=== PATIENT | female | born 1960 | race Caucasian/White ===

== ENCOUNTER 2024-10-14 15:22 | Inpatient (IN) | payer OTHER ==
[~2024-10-14 15:22] MED LIST: Iopamidol 370 76% 100 ML VIAL ONE
[2024-10-14 16:42] LABS: Actual Bicarbonate (HCO3v) 23.1 mEq/L (22-28); Analyzer IN Cardio CS ER; Base Excess -0.8 mEq/L (-2 - +2); Calcium, Ionized (venous) 1.15 mmol/L (1.16-1.32); Chloride (VBG) 102 mmol/L (98-106); Hematocrit-VBG 49 % (36.0-47.0); Hemoglobin (Hb) 16.7 g/dL (11.7-16.0); Potassium (VBG) 3.62 mmol/L (3.70-5.30); Puncture Site Other Site; RapidComm Collect By RN; Sodium 141 mmol/L (133-146)
[2024-10-14] MEDS ORDERED: Ipratropium/Albuterol 3 ML NEB ONE (16:52)
[2024-10-14 16:57] LABS: #Basophils 0.09 10x3/uL (0.0-0.2); #Eosinophils 0.06 10x3/uL (0.0-0.5); #Monocytes 0.72 10x3/uL (0.0-1.1); #Neutrophils 5.81 10x3/uL (1.5-8.4); %Basophils 1.2 % (0.0-2.0); %Eosinophils 0.8 % (0.0-6.0); %Lymphocytes 6.7 % (18.0-47.0); %Monocytes 9.9 % (0.0-10.0); %Neutrophils 80.2 % (40.0-75.0); Hematocrit 45.7 % (34.9-44.5); Hemoglobin 15.1 g/dL (12.0-15.5); Mean Corpuscular Hemoglobin 32.3 pg (27.0-33.0); Mean Corpuscular Volume 97.9 fL (81.6-98.3); Mean Platelet Volume 9.8 fL (7.4-10.4); Platelet Count 322 10x3/uL (150-450); RBC Distribution Width 16.6 % (11.5-14.5); Red Blood Cell (RBC) Count 4.67 10x6/uL (3.90-5.03); White Blood Cell (WBC) Count 7.3 10x3/uL (3.5-10.5)
[2024-10-14 17:07] LABS: ALT (SGPT) 17 U/L (8-55); AST (SGOT) 16 U/L (5-34); Albumin 3.4 g/dL (3.4-4.8); Alkaline Phosphatase 73 U/L (40-110); Anion Gap 17 mmol/L (10-20); BUN (Urea Nitrogen) 11 mg/dL (9.8-20.1); Bilirubin, Total 0.9 mg/dL (0.2-1.2); Calc. Creatinine Clearance 0 mL/min (70-130); Calcium 9.6 mg/dL (7.8-10.44); Carbon Dioxide 22 mmol/L (23-31); Chloride 107 mmol/L (98-107); Estimated GFR 99; Globulin 2.5 g/dL (2.4-3.5); Glucose 154 mg/dL (80-115); Protein, Total 5.9 g/dL (5.8-8.1); Sodium 142 mmol/L (136-145)
[2024-10-14 17:14] LABS: Troponin I Less than 0.010 ng/mL (< 0.028)
[2024-10-14] MEDS ORDERED: methylPREDNISolone Sod Succ/PF 125 MG/2 ML VIAL ONE (17:15)
[2024-10-14] MEDS ORDERED: Azithromycin 500 MG VIAL ONE (17:16)
[2024-10-14] MEDS ORDERED: cefTRIAXone (ROCEPHIN) 2 GM VIAL ONE ×2 (17:17→17:36)
[2024-10-14] MEDS ORDERED: Calcium Carbonate 500 MG ChewTAB PO PRN (20:20)
[2024-10-14] MEDS ORDERED: Dextrose 5% in Water 1,000 ML IV PRN (20:20)
[2024-10-14] MEDS ORDERED: Ondansetron PF 4 MG/2 ML Vial IVP PRN (20:20)
[2024-10-14] MEDS ORDERED: Dextrose 50% Abboject 50 ML SYRINGE SLOW IVP PRN (20:20)
[2024-10-14] MEDS ORDERED: Senokot S 8.6-50 MG TAB PO PRN (20:20)
[2024-10-14] MEDS ORDERED: Zolpidem Tartrate 5 MG TAB PO PRN (20:20)
[2024-10-14] MEDS ORDERED: Glucagon 1 MG/ML KIT IM PRN (20:20)
[2024-10-14] MEDS ORDERED: Ipratropium/Albuterol 3 ML NEB NEB PRN (20:26)
[2024-10-14 21:15] LABS: Troponin I Less than 0.010 ng/mL (< 0.028)
[2024-10-14 21:42] VITALS: BMI 29.5
[2024-10-14] MEDS: Rosuvastatin 10 MG TAB PO SCH (22:26)
[2024-10-14] MEDS: Flecainide 50 MG TAB PO SCH (22:26)
[2024-10-14] MEDS: Furosemide 40 MG (4 mL) VIAL SLOW IVP SCH (22:27)
[2024-10-14] MEDS: Enoxaparin 100 MG (1 mL) SYRINGE SC SCH (22:38)
[2024-10-14] MEDS: Guaifenesin DM 100-10/5 ML UDCUP PO PRN (23:09)
[2024-10-14] MEDS: Insulin Lispro 100 UNIT/ML 10 ML VIAL SC PRN (23:10)
[2024-10-14] MEDS: methylPREDNISolone Sod Succ 40 MG VIAL IVP SCH (23:11)
[2024-10-14 23:58] LABS: Legionella Urinary Ag Negative (Negative); Strep pneumo Urine Ag NEGATIVE (NEGATIVE)
[2024-10-15 00:06] LABS: Troponin I Less than 0.010 ng/mL (< 0.028)
[2024-10-15 04:41] LABS: MDiff Complete? YES; Mean Corpuscular HGB CONC 33.3 g/dL (32.0-36.0); Mean Corpuscular Hemoglobin 32.3 pg (27.0-33.0); Mean Platelet Volume 9.7 fL (7.4-10.4); Platelet Count 333 10x3/uL (150-450); RBC Distribution Width 16.5 % (11.5-14.5); Red Blood Cell (RBC) Count 4.64 10x6/uL (3.90-5.03); White Blood Cell (WBC) Count 7.9 10x3/uL (3.5-10.5)
[2024-10-15 04:45] LABS: Anion Gap 17 mmol/L (10-20); BUN (Urea Nitrogen) 14 mg/dL (9.8-20.1); Calc. Creatinine Clearance 126 mL/min (70-130); Calcium 9.6 mg/dL (7.8-10.44); Carbon Dioxide 23 mmol/L (23-31); Chloride 105 mmol/L (98-107); Estimated GFR 94; Glucose 329 mg/dL (80-115); Magnesium 1.9 mg/dL (1.6-2.6); Potassium 3.9 mmol/L (3.5-5.1); Sodium 141 mmol/L (136-145)
[2024-10-15 05:11] LABS: Band 14 % (5-11); Lymphocytes 5 % (21-51); Monocytes 2 % (0-10); Neutrophil 79 % (42-75)
[2024-10-15 05:16] LABS: Anisocytosis SLIGHT = 6-15 cells (100X) (0-5/hpf); Platelet Adequacy Comment Appears Adequate; Polychromasia SLIGHT = 2-3 cells (100X) (0-2/hpf); Toxic Granulation SLIGHT
[2024-10-15] MEDS: Levothyroxine 150 MCG TAB PO SCH (05:45)
[2024-10-15] MEDS: Levothyroxine Sodium 25 MCG TAB PO SCH (05:45)
[2024-10-15] MEDS: Furosemide 20 MG (2 mL) VIAL SLOW IVP SCH (06:26)
[2024-10-15] MEDS ORDERED: Glimepiride 2 MG TAB PO SCH (08:00)
[2024-10-15] MEDS ORDERED: Furosemide 20 MG (2 mL) VIAL SLOW IVP SCH (09:00)
[2024-10-15] MEDS ORDERED: Enoxaparin 100 MG (1 mL) SYRINGE SC SCH (09:00)
[2024-10-15] MEDS ORDERED: Apixaban 5 MG TAB PO SCH (09:00)
[2024-10-15] MEDS ORDERED: Flecainide 50 MG TAB PO SCH (09:00)
[2024-10-15] MEDS: Amlodipine 5 MG TAB PO SCH (10:59)
[2024-10-15] MEDS: Pantoprazole DR 40 MG TAB PO SCH (10:59)
[2024-10-15] MEDS: Magnesium Oxide 400 MG TAB PO SCH (10:59)
[2024-10-15] MEDS: Glimepiride 2 MG TAB PO SCH (11:00)
[2024-10-15] MEDS: Potassium Chloride 20 MEQ TAB PO SCH (11:00)
[2024-10-15] MEDS: Apixaban 5 MG TAB PO SCH (11:00)
[2024-10-15] MEDS: Flecainide 50 MG TAB PO SCH (11:00)
[2024-10-15] MEDS: methylPREDNISolone Sod Succ 40 MG VIAL IVP SCH (11:04)
[2024-10-15] MEDS: Insulin Regular, Human 100 UNIT/ML 10 ML VIAL SC PRN (12:40)
[2024-10-15] MEDS: Ipratropium Bromide 2.5 ml Neb NEB SCH (13:45)
[2024-10-15] MEDS ORDERED: Furosemide 40 MG (4 mL) VIAL SLOW IVP SCH (14:00)
[2024-10-15] MEDS: cefTRIAXone\\ROCEPHIN 2 GM in Sodium Chloride 0.9% 100 ML IVPB SCH (18:06)
[2024-10-15] MEDS: Azithromycin 500 MG in Sodium Chloride 0.9% 250 ML 250 ML IVPB SCH (19:27)
[2024-10-15] MEDS: Rosuvastatin 10 MG TAB PO SCH (20:51)
[2024-10-16 04:47] LABS: #Basophils 0.01 10x3/uL (0.0-0.2); #Eosinophils 0.01 10x3/uL (0.0-0.5); #Monocytes 0.86 10x3/uL (0.0-1.1); #Neutrophils 8.58 10x3/uL (1.5-8.4); %Basophils 0.1 % (0.0-2.0); %Eosinophils 0.1 % (0.0-6.0); %Lymphocytes 2.5 % (18.0-47.0); %Monocytes 8.8 % (0.0-10.0); %Neutrophils 87.8 % (40.0-75.0); Hematocrit 43.9 % (34.9-44.5); Hemoglobin 14.4 g/dL (12.0-15.5); Mean Corpuscular HGB CONC 32.8 g/dL (32.0-36.0); Mean Corpuscular Hemoglobin 31.8 pg (27.0-33.0); Mean Corpuscular Volume 96.9 fL (81.6-98.3); Mean Platelet Volume 9.8 fL (7.4-10.4); Platelet Count 323 10x3/uL (150-450); RBC Distribution Width 16.5 % (11.5-14.5); Red Blood Cell (RBC) Count 4.53 10x6/uL (3.90-5.03); White Blood Cell (WBC) Count 9.8 10x3/uL (3.5-10.5)
[2024-10-16 04:58] LABS: Anion Gap 17 mmol/L (10-20); BUN (Urea Nitrogen) 23 mg/dL (9.8-20.1); Calc. Creatinine Clearance 130 mL/min (70-130); Calcium 8.9 mg/dL (7.8-10.44); Carbon Dioxide 24 mmol/L (23-31); Chloride 108 mmol/L (98-107); Estimated GFR 98; Glucose 125 mg/dL (80-115); Potassium 3.9 mmol/L (3.5-5.1); Sodium 145 mmol/L (136-145)
[2024-10-16] MEDS: Lantus 1000 UNITS/10 ML VIAL SC SCH (08:46)
[2024-10-16] MEDS: Furosemide 40 MG TAB PO SCH ×2 (08:58→08:59)
[2024-10-16] MEDS: methylPREDNISolone Sod Succ 40 MG VIAL IVP SCH (08:59)
[2024-10-16] MEDS: Flecainide 50 MG TAB PO SCH ×3 (09:00→21:45)
[2024-10-16] MEDS ORDERED: methylPREDNISolone Sod Succ 40 MG VIAL IVP SCH (09:00)
[2024-10-16] MEDS ORDERED: Ipratropium Bromide 2.5 ml Neb ONE (09:38)
[2024-10-16] MEDS: Ipratropium Bromide 2.5 ml Neb NEB SCH (11:45)
[2024-10-16 13:19] LABS: ANA Symphony (Qualitative) Negative (Negative); ANA Symphony (Quantitative) Less than 0.1 Ratio (< 0.7 Negative); dsDNA IgG Antibody Less than 0.6 IU/mL (<10 Negative)
[2024-10-16] MEDS: cefTRIAXone\\ROCEPHIN 1 GM in Sodium Chloride 0.9% 100 ML IVPB SCH (19:04)
[2024-10-17 04:13] LABS: Anion Gap 15 mmol/L (10-20); BUN (Urea Nitrogen) 23 mg/dL (9.8-20.1); Calc. Creatinine Clearance 130 mL/min (70-130); Calcium 8.9 mg/dL (7.8-10.44); Carbon Dioxide 26 mmol/L (23-31); Chloride 104 mmol/L (98-107); Estimated GFR 98; Glucose 183 mg/dL (80-115); Potassium 4.3 mmol/L (3.5-5.1); Sodium 141 mmol/L (136-145)
[2024-10-17 04:19] LABS: #Basophils 0.01 10x3/uL (0.0-0.2); #Monocytes 0.49 10x3/uL (0.0-1.1); #Neutrophils 6.57 10x3/uL (1.5-8.4); %Basophils 0.1 % (0.0-2.0); %Lymphocytes 2.9 % (18.0-47.0); %Monocytes 6.7 % (0.0-10.0); %Neutrophils 89.9 % (40.0-75.0); Hematocrit 44.9 % (34.9-44.5); Hemoglobin 14.5 g/dL (12.0-15.5); Mean Corpuscular HGB CONC 32.3 g/dL (32.0-36.0); Mean Corpuscular Hemoglobin 31.4 pg (27.0-33.0); Mean Corpuscular Volume 97.2 fL (81.6-98.3); Platelet Count 303 10x3/uL (150-450); RBC Distribution Width 16.8 % (11.5-14.5); Red Blood Cell (RBC) Count 4.62 10x6/uL (3.90-5.03); White Blood Cell (WBC) Count 7.3 10x3/uL (3.5-10.5)
[2024-10-17] MEDS: dilTIAZem CD 180 MG CAP PO SCH (08:17)
[2024-10-17] MEDS: Flecainide 50 MG TAB PO SCH (08:18)
[2024-10-17] MEDS: Acetaminophen 325 MG TAB PO PRN (13:14)
[2024-10-18 04:09] LABS: #Basophils 0.01 10x3/uL (0.0-0.2); #Monocytes 0.75 10x3/uL (0.0-1.1); #Neutrophils 8.11 10x3/uL (1.5-8.4); %Basophils 0.1 % (0.0-2.0); %Lymphocytes 2.3 % (18.0-47.0); %Monocytes 8.2 % (0.0-10.0); %Neutrophils 88.9 % (40.0-75.0); Hematocrit 43.7 % (34.9-44.5); Mean Corpuscular Hemoglobin 31.8 pg (27.0-33.0); Mean Corpuscular Volume 99.3 fL (81.6-98.3); Mean Platelet Volume 10.1 fL (7.4-10.4); Platelet Count 257 10x3/uL (150-450); RBC Distribution Width 16.7 % (11.5-14.5); White Blood Cell (WBC) Count 9.1 10x3/uL (3.5-10.5)
[2024-10-18 04:44] LABS: Anion Gap 14 mmol/L (10-20); BUN (Urea Nitrogen) 25 mg/dL (9.8-20.1); Calc. Creatinine Clearance 132 mL/min (70-130); Calcium 8.8 mg/dL (7.8-10.44); Carbon Dioxide 25 mmol/L (23-31); Chloride 102 mmol/L (98-107); Estimated GFR 98; Glucose 245 mg/dL (80-115); Potassium 4.4 mmol/L (3.5-5.1); Sodium 137 mmol/L (136-145)
[2024-10-18 07:55] VITALS: TEMP 97.6
[2024-10-18 12:23] VITALS: BP 122/94
== END 2024-10-18 12:26 | disposition home or self-care (01) | DRG 193 ==
LOC: CSHERS 15:22 → CSHTELE 17:59
PROVIDERS: ADMIT Internal Medicine; ATTEND Family Medicine
DX: J12.1 Respiratory syncytial virus pneumonia (principal); I50.33 Acute on chronic diastolic (congestive) heart failure; J96.01 Acute respiratory failure with hypoxia; I48.11 Longstanding persistent atrial fibrillation; C90.00 Multiple myeloma not having achieved remission; I13.0 Hypertensive heart and chronic kidney disease with heart failure and stage 1 through stage 4 chronic kidney disease, or unspecified chronic kidney disease; E78.5 Hyperlipidemia, unspecified; E03.9 Hypothyroidism, unspecified; Z91.040 Latex allergy status; Z88.2 Allergy status to sulfonamides; Z90.49 Acquired absence of other specified parts of digestive tract; Z90.89 Acquired absence of other organs; Z98.890 Other specified postprocedural states; Z86.711 Personal history of pulmonary embolism; E66.9 Obesity, unspecified; Z68.29 Body mass index [BMI] 29.0-29.9, adult; Z79.4 Long term (current) use of insulin; Z79.899 Other long term (current) drug therapy; J06.9 Acute upper respiratory infection, unspecified; J20.9 Acute bronchitis, unspecified; N18.2 Chronic kidney disease, stage 2 (mild); E11.22 Type 2 diabetes mellitus with diabetic chronic kidney disease
CPT/HCPCS: 36415; 36416; 71045; 71275; 80048; 80053; 82805; 83605; 83735; 83880; 84145; 84439; 84443; 84484; 85025; 86038; 86140; 86225; 87040; 87428; 87449; 87633; 87899; 93005; 93306; 94640; 94645; 94760; 94762; 96374; 96375; J0456; J0696; J1650; J1815; J1940; J2919; J7050; J7620; J7644; Q9967

== ENCOUNTER 2024-11-07 19:39 | Inpatient (IN) | payer OTHER ==
[~2024-11-07 19:39] MED LIST changes: +Iopamidol 300 61% 100 ML VIAL FS ONE; -Iopamidol 370 76% 100 ML VIAL ONE
[2024-11-07 20:56] LABS: #Eosinophils 0.19 10x3/uL (0.0-0.5); #Monocytes 0.88 10x3/uL (0.0-1.1); #Neutrophils 3.52 10x3/uL (1.5-8.4); %Eosinophils 3.8 % (0.0-6.0); %Lymphocytes 4.4 % (18.0-47.0); %Monocytes 17.7 % (0.0-10.0); %Neutrophils 70.9 % (40.0-75.0); Hematocrit 40.5 % (34.9-44.5); Hemoglobin 14.1 g/dL (12.0-15.5); Mean Corpuscular HGB CONC 34.8 g/dL (32.0-36.0); Mean Corpuscular Hemoglobin 32.1 pg (27.0-33.0); Mean Corpuscular Volume 92.3 fL (81.6-98.3); Mean Platelet Volume 11.2 fL (7.4-10.4); Platelet Count 307 10x3/uL (150-450); Red Blood Cell (RBC) Count 4.39 10x6/uL (3.90-5.03); White Blood Cell (WBC) Count 4.97 10x3/uL (3.5-10.5)
[2024-11-07 21:14] LABS: ALT (SGPT) 65 U/L (8-55); AST (SGOT) 53 U/L (5-34); Albumin 2.9 g/dL (3.4-4.8); Alkaline Phosphatase 94 U/L (40-110); Anion Gap 17 mmol/L (10-20); BUN (Urea Nitrogen) 12 mg/dL (9.8-20.1); Bilirubin, Total 1.1 mg/dL (0.2-1.2); Calc. Creatinine Clearance 0 mL/min (70-130); Carbon Dioxide 29 mmol/L (23-31); Chloride 100 mmol/L (98-107); Estimated GFR 83; Globulin 2.3 g/dL (2.4-3.5); Glucose 65 mg/dL (80-115); Lipase 33 U/L (8-78); Protein, Total 5.2 g/dL (5.8-8.1); Sodium 144 mmol/L (136-145)
[2024-11-07 21:15] LABS: Troponin I 0.086 ng/mL (< 0.028)
[2024-11-07 21:22] LABS: Critical Call Chemistry NUR.VM6 AT 2122; Potassium 1.9 mmol/L (3.5-5.1)
[2024-11-07 21:24] LABS: Bilirubin Neg (Negative); Blood, Urine 150 (Negative); Clarity Clear (Clear); Glucose, Urine (Dipstick) Normal (Negative); Ketone, Urine Negative (Negative); Leukocyte 25 (Negative); Nitrite Negative (Negative); Protein, Urine (Dipstick) 30 mg/dl (Neg-Trace); Specific Gravity, Urine 1.005 (1.005-1.030); Urobilinogen Normal mg/dL (Less than 2); pH, Urine 6.5 (5.0-9.0)
[2024-11-07] MEDS ORDERED: Potassium Chloride 20 MEQ TAB ONE (21:43)
[2024-11-07] MEDS ORDERED: NS 0.9% w/ 20 MEQ KCL 2,000 ML ONE (21:44)
[2024-11-07 21:50] LABS: Bacteria/HPF None Seen HPF (None Seen); CAUTI Indications for Culture Pelvic or flank pain; RBC/HPF None Seen HPF (0-3); Squamous Epithelial 0-3 HPF (0-3); WBC/HPF None Seen HPF (0-3)
[2024-11-07 21:51] LABS: Urine Culture Reflex No No
[2024-11-07 22:23] LABS: Critical Call Chemistry NUR.VM6at 2222; Magnesium Less than 0.6 mg/dL (1.6-2.6)
[2024-11-07 22:40] LABS: Troponin I 0.086 ng/mL (< 0.028)
[2024-11-07] MEDS ORDERED: Magnesium 2 GM/50 ML BAG (IN WATER) ONE (23:01)
[2024-11-07] MEDS ORDERED: Calcium Carbonate 500 MG ChewTAB PO PRN (23:21)
[2024-11-07] MEDS ORDERED: Simethicone Chewable 80 MG TAB PO PRN (23:24)
[2024-11-07] MEDS ORDERED: Glucagon 1 MG/ML KIT IM PRN (23:27)
[2024-11-07] MEDS ORDERED: Dextrose 5% in Water 1,000 ML IV PRN (23:27)
[2024-11-07] MEDS ORDERED: Dextrose 50% Abboject 50 ML SYRINGE SLOW IVP PRN (23:27)
[2024-11-08 00:54] VITALS: BMI 39.9
[2024-11-08] MEDS: NS 0.9% w/ 40 MEQ KCL 1,000 ML IV SCH ×2 (01:08→11:29)
[2024-11-08] MEDS: Ondansetron PF 4 MG/2 ML Vial IVP PRN (01:11)
[2024-11-08] MEDS: Magnesium 2 GM/50 ML(in water) 2 GM in Premix 1 BAG IVPB SCH ×2 (01:11→04:04)
[2024-11-08] MEDS: Potassium Chloride 20 MEQ TAB PO SCH ×5 (01:12→15:26)
[2024-11-08 02:20] LABS: Magnesium 1.4 mg/dL (1.6-2.6)
[2024-11-08 02:23] LABS: Critical Call Chemistry ICU.EGM@0222/JG2/WITHREADBACK; Potassium 1.9 mmol/L (3.5-5.1)
[2024-11-08 02:24] LABS: Troponin I 0.073 ng/mL (< 0.028)
[2024-11-08] MEDS: CALCIUM GLUC 1 GM/NS 50 ML 1 GM in Premix 1 BAG IVPB SCH (02:43)
[2024-11-08] MEDS: Levothyroxine Sodium 100 MCG TAB PO SCH (05:09)
[2024-11-08] MEDS: Levothyroxine Sodium 75 MCG TAB PO SCH (05:09)
[2024-11-08 05:54] LABS: #Basophils 0.07 10x3/uL (0.0-0.2); #Eosinophils 0.17 10x3/uL (0.0-0.5); #Monocytes 0.87 10x3/uL (0.0-1.1); #Neutrophils 3.35 10x3/uL (1.5-8.4); %Basophils 1.5 % (0.0-2.0); %Eosinophils 3.6 % (0.0-6.0); %Lymphocytes 3.2 % (18.0-47.0); %Monocytes 18.7 % (0.0-10.0); %Neutrophils 71.9 % (40.0-75.0); Hematocrit 36.2 % (34.9-44.5); Hemoglobin 12.9 g/dL (12.0-15.5); Mean Corpuscular HGB CONC 35.6 g/dL (32.0-36.0); Mean Corpuscular Hemoglobin 33.3 pg (27.0-33.0); Mean Corpuscular Volume 93.5 fL (81.6-98.3); Mean Platelet Volume 10.4 fL (7.4-10.4); Platelet Count 259 10x3/uL (150-450); RBC Distribution Width 18.7 % (11.5-14.5); Red Blood Cell (RBC) Count 3.87 10x6/uL (3.90-5.03); White Blood Cell (WBC) Count 4.66 10x3/uL (3.5-10.5)
[2024-11-08 06:15] LABS: Phosphorus 3.3 mg/dL (2.3-4.7)
[2024-11-08 06:17] LABS: ALT (SGPT) 49 U/L (8-55); AST (SGOT) 38 U/L (5-34); Albumin 2.4 g/dL (3.4-4.8); Alkaline Phosphatase 75 U/L (40-110); Anion Gap 17 mmol/L (10-20); BUN (Urea Nitrogen) 10 mg/dL (9.8-20.1); Bilirubin, Total 0.9 mg/dL (0.2-1.2); Calc. Creatinine Clearance 178 mL/min (70-130); Carbon Dioxide 24 mmol/L (23-31); Chloride 106 mmol/L (98-107); Estimated GFR 98; Globulin 1.8 g/dL (2.4-3.5); Glucose 74 mg/dL (80-115); Magnesium 2.1 mg/dL (1.6-2.6); Protein, Total 4.2 g/dL (5.8-8.1); Sodium 145 mmol/L (136-145)
[2024-11-08 06:21] LABS: Calcium 5.7 mg/dL (7.8-10.44); Critical Call Chemistry ICU.EGM@0620/JG2/WITHREADBACK; Potassium 2.3 mmol/L (3.5-5.1)
[2024-11-08] MEDS: Calcium Gluconate 4.6 MEQ in Sodium Chloride 0.9% 100 ML IVPB SCH (06:59)
[2024-11-08] MEDS ORDERED: Enoxaparin 40 MG (0.4 mL) SYRINGE SC SCH (09:00)
[2024-11-08] MEDS ORDERED: Metoprolol Succinate XL 25 MG ER.TAB PO SCH (09:00)
[2024-11-08] MEDS ORDERED: dilTIAZem CD 180 MG CAP PO SCH ×2 (09:00)
[2024-11-08] MEDS: Calcium Carbonate 500 MG ChewTAB PO SCH (09:04)
[2024-11-08] MEDS: Saccharomyces boulardii 250 MG CAP PO SCH (09:04)
[2024-11-08] MEDS: Flecainide 50 MG TAB PO SCH (09:06)
[2024-11-08] MEDS: Apixaban 5 MG TAB PO SCH (09:07)
[2024-11-08 09:59] LABS: Anion Gap 14 mmol/L (10-20); BUN (Urea Nitrogen) 9 mg/dL (9.8-20.1); Calc. Creatinine Clearance 178 mL/min (70-130); Carbon Dioxide 24 mmol/L (23-31); Chloride 108 mmol/L (98-107); Estimated GFR 98; Glucose 106 mg/dL (80-115); Sodium 144 mmol/L (136-145)
[2024-11-08 10:09] LABS: Critical Call Chemistry NUR.ES11@1005; Potassium 2.4 mmol/L (3.5-5.1)
[2024-11-08 14:22] LABS: Potassium 2.7 mmol/L (3.5-5.1)
[2024-11-08 14:52] LABS: Troponin I 0.045 ng/mL (< 0.028)
[2024-11-08 19:45] LABS: Potassium 3.6 mmol/L (3.5-5.1)
[2024-11-08] MEDS: Rosuvastatin 10 MG TAB PO SCH (21:14)
[2024-11-09 04:55] LABS: ALT (SGPT) 38 U/L (8-55); AST (SGOT) 23 U/L (5-34); Alkaline Phosphatase 71 U/L (40-110); Anion Gap 14 mmol/L (10-20); BUN (Urea Nitrogen) 8 mg/dL (9.8-20.1); Bilirubin, Total 0.7 mg/dL (0.2-1.2); Calc. Creatinine Clearance 195 mL/min (70-130); Carbon Dioxide 22 mmol/L (23-31); Chloride 111 mmol/L (98-107); Estimated GFR 100; Globulin 2.1 g/dL (2.4-3.5); Glucose 78 mg/dL (80-115); Magnesium 1.6 mg/dL (1.6-2.6); Potassium 3.1 mmol/L (3.5-5.1); Protein, Total 4.1 g/dL (5.8-8.1); Sodium 144 mmol/L (136-145)
[2024-11-09 05:01] LABS: Hematocrit 32.3 % (34.9-44.5); Hemoglobin 11.3 g/dL (12.0-15.5); Mean Corpuscular Hemoglobin 33.4 pg (27.0-33.0); Mean Corpuscular Volume 95.6 fL (81.6-98.3); Mean Platelet Volume 10.6 fL (7.4-10.4); Platelet Count 256 10x3/uL (150-450); RBC Distribution Width 19.3 % (11.5-14.5); Red Blood Cell (RBC) Count 3.38 10x6/uL (3.90-5.03); White Blood Cell (WBC) Count 4.83 10x3/uL (3.5-10.5)
[2024-11-09 05:06] LABS: Calcium 6.2 mg/dL (7.8-10.44); Critical Call Chemistry NUR.TL5@0505
[2024-11-09 06:46] LABS: Anisocytosis SLIGHT = 6-15 cells (100X) (0-5/hpf); Band 15 % (5-11); Elliptocytes SLIGHT = 2-5 cells (100X) (0-1/hpf); Eosinophils 3 % (0-10); Large Platelets SLIGHT (None Seen); Lymphocytes 6 % (21-51); MDiff Complete? YES; Monocytes 17 % (0-10); Neutrophil 57 % (42-75); Ovalocytes SLIGHT = 2-5 cells (100X) (0-1/hpf); Platelet Adequacy Comment Appears Adequate; Poikilocytosis SLIGHT = 6-15 cells (100X) (0-5/hpf); Polychromasia SLIGHT = 2-3 cells (100X) (0-2/hpf); Target Cells SLIGHT = 2-5 cells (100X) (0-1/hpf)
[2024-11-09] MEDS: dilTIAZem CD 180 MG CAP PO SCH (10:18)
[2024-11-09] MEDS: Calcium Gluconate 4.6 MEQ in Sodium Chloride 0.9% 100 ML IVPB SCH (10:19)
[2024-11-09] MEDS: Magnesium 2 GM/50 ML(in water) 2 GM in Premix 1 BAG IVPB SCH (10:20)
[2024-11-09] MEDS: Calcium Gluc 4.6 MEQ/10 ML (100 MG/ML) SLOW IVP ONE (10:43)
[2024-11-09 14:43] LABS: Campy jejuni + coli by PCR Negative (Negative); STEC Shiga Toxin 1+2 Negative (Negative); Salmonella spp. by PCR Negative (Negative); Shigella spp + EIEC by PCR Negative (Negative)
[2024-11-09] MEDS: Calcium Carbonate 500 MG ChewTAB PO SCH (18:17)
[2024-11-09] MEDS: Apixaban 5 MG TAB PO SCH (18:18)
[2024-11-09] MEDS: Rosuvastatin 10 MG TAB PO SCH (18:18)
[2024-11-09] MEDS: Flecainide 50 MG TAB PO SCH (18:19)
[2024-11-10 04:56] LABS: Hematocrit 34.4 % (34.9-44.5); Hemoglobin 11.3 g/dL (12.0-15.5); Mean Corpuscular HGB CONC 32.8 g/dL (32.0-36.0); Mean Corpuscular Volume 94.5 fL (81.6-98.3); Mean Platelet Volume 10.4 fL (7.4-10.4); Platelet Count 293 10x3/uL (150-450); RBC Distribution Width 18.6 % (11.5-14.5); Red Blood Cell (RBC) Count 3.64 10x6/uL (3.90-5.03); White Blood Cell (WBC) Count 4.94 10x3/uL (3.5-10.5)
[2024-11-10 05:07] LABS: Anion Gap 14 mmol/L (10-20); BUN (Urea Nitrogen) 6 mg/dL (9.8-20.1); Calc. Creatinine Clearance 198 mL/min (70-130); Carbon Dioxide 27 mmol/L (23-31); Chloride 106 mmol/L (98-107); Estimated GFR 101; Glucose 147 mg/dL (80-115); Potassium 2.7 mmol/L (3.5-5.1); Sodium 144 mmol/L (136-145)
[2024-11-10 05:11] LABS: Calcium 6.8 mg/dL (7.8-10.44); Critical Call Chemistry NUR.AS9@0511
[2024-11-10 06:22] LABS: Anisocytosis SLIGHT = 6-15 cells (100X) (0-5/hpf); Band 13 % (5-11); Eosinophils 2 % (0-10); Large Platelets SLIGHT (None Seen); Lymphocytes 6 % (21-51); MDiff Complete? YES; Monocytes 23 % (0-10); Neutrophil 54 % (42-75); Ovalocytes SLIGHT = 2-5 cells (100X) (0-1/hpf); Platelet Adequacy Comment Appears Adequate; Polychromasia SLIGHT = 2-3 cells (100X) (0-2/hpf); Target Cells SLIGHT = 2-5 cells (100X) (0-1/hpf)
[2024-11-10] MEDS: dilTIAZem CD 180 MG CAP PO SCH (06:48)
[2024-11-10] MEDS: Saccharomyces boulardii 250 MG CAP PO SCH (06:48)
[2024-11-10] MEDS: Potassium Chloride 20 MEQ TAB PO SCH (09:17)
[2024-11-10] MEDS: Flecainide 50 MG TAB PO SCH (18:41)
[2024-11-11 04:13] LABS: Anion Gap 13 mmol/L (10-20); BUN (Urea Nitrogen) 7 mg/dL (9.8-20.1); Calc. Creatinine Clearance 205 mL/min (70-130); Calcium 7.7 mg/dL (7.8-10.44); Carbon Dioxide 29 mmol/L (23-31); Chloride 105 mmol/L (98-107); Estimated GFR 101; Glucose 117 mg/dL (80-115); Potassium 3.6 mmol/L (3.5-5.1); Sodium 143 mmol/L (136-145)
[2024-11-12 04:52] LABS: Anion Gap 13 mmol/L (10-20); BUN (Urea Nitrogen) 8 mg/dL (9.8-20.1); Calc. Creatinine Clearance 186 mL/min (70-130); Calcium 7.9 mg/dL (7.8-10.44); Carbon Dioxide 28 mmol/L (23-31); Chloride 101 mmol/L (98-107); Estimated GFR 99; Glucose 113 mg/dL (80-115); Potassium 3.6 mmol/L (3.5-5.1); Sodium 138 mmol/L (136-145)
[2024-11-12] MEDS: Loperamide HCl 2 MG CAP PO PRN (13:09)
[2024-11-12] MEDS: Ondansetron ODT 4 MG TAB PO PRN (14:05)
[2024-11-13] MEDS: Guaifenesin DM 100-10/5 ML UDCUP PO PRN (03:13)
[2024-11-13] MEDS: Albuterol 2.5 MG (3 mL) NEB NEB PRN (07:54)
[2024-11-13] MEDS: guaiFENesin ER 600 MG TAB PO SCH (08:22)
[2024-11-13] MEDS: Acetaminophen 325 MG TAB PO PRN (08:23)
[2024-11-13 09:21] LABS: #Basophils 0.11 10x3/uL (0.0-0.2); #Eosinophils 0.03 10x3/uL (0.0-0.5); #Monocytes 1.29 10x3/uL (0.0-1.1); #Neutrophils 4.56 10x3/uL (1.5-8.4); %Basophils 1.6 % (0.0-2.0); %Eosinophils 0.4 % (0.0-6.0); %Lymphocytes 9.7 % (18.0-47.0); %Monocytes 19.3 % (0.0-10.0); %Neutrophils 68.3 % (40.0-75.0); Hematocrit 36.6 % (34.9-44.5); Hemoglobin 12.1 g/dL (12.0-15.5); Mean Corpuscular HGB CONC 33.1 g/dL (32.0-36.0); Mean Corpuscular Hemoglobin 32.3 pg (27.0-33.0); Mean Corpuscular Volume 97.6 fL (81.6-98.3); Mean Platelet Volume 10.3 fL (7.4-10.4); Platelet Count 329 10x3/uL (150-450); RBC Distribution Width 19.1 % (11.5-14.5); Red Blood Cell (RBC) Count 3.75 10x6/uL (3.90-5.03); White Blood Cell (WBC) Count 6.69 10x3/uL (3.5-10.5)
[2024-11-13 09:57] LABS: Anion Gap 13 mmol/L (10-20); BUN (Urea Nitrogen) 6 mg/dL (9.8-20.1); Calc. Creatinine Clearance 195 mL/min (70-130); Calcium 7.7 mg/dL (7.8-10.44); Carbon Dioxide 28 mmol/L (23-31); Chloride 100 mmol/L (98-107); Estimated GFR 100; Glucose 129 mg/dL (80-115); Potassium 4.1 mmol/L (3.5-5.1); Sodium 137 mmol/L (136-145)
[2024-11-13 21:56] LABS: Influenza A by NAA DETECTED (NotDetected); Influenza B by NAA Not Detected (NotDetected); RSV by NAA Not Detected (NotDetected); SARS-CoV-2 NAA Rapid Test Not Detected (NotDetected)
[2024-11-14 04:55] LABS: Hematocrit 37.2 % (34.9-44.5); Hemoglobin 12.1 g/dL (12.0-15.5); Mean Corpuscular HGB CONC 32.5 g/dL (32.0-36.0); Mean Corpuscular Hemoglobin 32.2 pg (27.0-33.0); Mean Corpuscular Volume 98.9 fL (81.6-98.3); Mean Platelet Volume 10.5 fL (7.4-10.4); Platelet Count 340 10x3/uL (150-450); RBC Distribution Width 19.2 % (11.5-14.5); Red Blood Cell (RBC) Count 3.76 10x6/uL (3.90-5.03); White Blood Cell (WBC) Count 7.59 10x3/uL (3.5-10.5)
[2024-11-14 04:57] LABS: Anion Gap 15 mmol/L (10-20); BUN (Urea Nitrogen) 6 mg/dL (9.8-20.1); Calc. Creatinine Clearance 186 mL/min (70-130); Calcium 7.7 mg/dL (7.8-10.44); Carbon Dioxide 27 mmol/L (23-31); Chloride 99 mmol/L (98-107); Estimated GFR 99; Glucose 133 mg/dL (80-115); Potassium 3.6 mmol/L (3.5-5.1); Sodium 137 mmol/L (136-145)
[2024-11-14 05:38] LABS: Anisocytosis SLIGHT = 6-15 cells (100X) (0-5/hpf); Band 18 % (5-11); Large Platelets SLIGHT (None Seen); Lymphocytes 7 % (21-51); MDiff Complete? YES; Monocytes 10 % (0-10); Neutrophil 63 % (42-75); Nucleated RBC (Manual Ct) 1 % (0); Ovalocytes SLIGHT = 2-5 cells (100X) (0-1/hpf); Platelet Adequacy Comment Appears Adequate; Polychromasia SLIGHT = 2-3 cells (100X) (0-2/hpf); Target Cells SLIGHT = 2-5 cells (100X) (0-1/hpf)
[2024-11-14] MEDS: Oseltamivir 75 MG CAP PO SCH (10:39)
[2024-11-14 13:17] VITALS: BMI 39.9
[2024-11-14] MEDS: guaiFENesin/DM ER PO SCH (20:11)
[2024-11-15] MEDS: Albuterol 2.5 MG (3 mL) NEB NEB SCH (02:27)
[2024-11-15 07:15] LABS: Adenovirus F 40-41 Not Detected (Not Detected); Astrovirus DETECTED (Not Detected); C. difficile toxin A+B Not Detected (Not Detected); Campylobacter by PCR Not Detected (Not Detected); Cryptosporidium Not Detected (Not Detected); Cyclospora cayetanensis Not Detected (Not Detected); Entamoeba histolytica Not Detected (Not Detected); Enteroaggregative E. coli Not Detected (Not Detected); Enteropathogenic E. coli Not Detected (Not Detected); Enterotoxigenic E. coli Not Detected (Not Detected); Giardia lamblia Not Detected (Not Detected); Norovirus GI-GII Not Detected (Not Detected); Plesiomonas shigelloides Not Detected (Not Detected); Rotavirus A Not Detected (Not Detected); Salmonella Not Detected (Not Detected); Sapovirus Not Detected (Not Detected); Shiga-toxin-producing E coli Not Detected (Not Detected); Shigella/Enteroinvasive E coli Not Detected (Not Detected); Vibrio Not Detected (Not Detected); Vibrio cholerae Not Detected (Not Detected); Yersinia enterocolitica Not Detected (Not Detected)
[2024-11-15] MEDS: Budesonide 0.25 MG/2 ML NEB INH SCH (07:15)
[2024-11-15] MEDS ORDERED: Ipratropium/Albuterol 3 ML NEB NEB PRN (07:37)
[2024-11-15] MEDS: methylPREDNISolone Sod Succ 40 MG VIAL IVP SCH (08:52)
[2024-11-15] MEDS ORDERED: methylPREDNISolone Sod Succ 40 MG VIAL IVP SCH (09:00)
[2024-11-15] MEDS: Furosemide 40 MG TAB PO SCH (12:52)
[2024-11-15] MEDS: Ipratropium/Albuterol 3 ML NEB NEB SCH (13:10)
[2024-11-16 04:38] LABS: #Basophils 0.03 10x3/uL (0.0-0.2); #Eosinophils 0.03 10x3/uL (0.0-0.5); #Monocytes 0.28 10x3/uL (0.0-1.1); #Neutrophils 4.65 10x3/uL (1.5-8.4); %Basophils 0.6 % (0.0-2.0); %Eosinophils 0.6 % (0.0-6.0); %Lymphocytes 4.5 % (18.0-47.0); %Monocytes 5.3 % (0.0-10.0); %Neutrophils 88.1 % (40.0-75.0); Hematocrit 37.9 % (34.9-44.5); Hemoglobin 12.4 g/dL (12.0-15.5); Mean Corpuscular HGB CONC 32.7 g/dL (32.0-36.0); Mean Corpuscular Hemoglobin 31.4 pg (27.0-33.0); Mean Corpuscular Volume 95.9 fL (81.6-98.3); Mean Platelet Volume 10.4 fL (7.4-10.4); Platelet Count 402 10x3/uL (150-450); RBC Distribution Width 18.7 % (11.5-14.5); Red Blood Cell (RBC) Count 3.95 10x6/uL (3.90-5.03); White Blood Cell (WBC) Count 5.28 10x3/uL (3.5-10.5)
[2024-11-16 04:57] LABS: Anion Gap 16 mmol/L (10-20); BUN (Urea Nitrogen) 6 mg/dL (9.8-20.1); Calc. Creatinine Clearance 220 mL/min (70-130); Carbon Dioxide 28 mmol/L (23-31); Chloride 96 mmol/L (98-107); Sodium 137 mmol/L (136-145)
[2024-11-16 04:58] LABS: Calcium 7.1 mg/dL (7.8-10.44); Estimated GFR 103; Glucose 186 mg/dL (80-115)
[2024-11-16] MEDS: Potassium Chloride 20 MEQ TAB PO SCH (09:12)
[2024-11-16] MEDS ORDERED: Dextrose 5% in Water 1,000 ML IV PRN (15:50)
[2024-11-16] MEDS ORDERED: Glucagon 1 MG/ML KIT IM PRN (15:50)
[2024-11-16] MEDS ORDERED: Dextrose 50% Abboject 50 ML SYRINGE SLOW IVP PRN (15:50)
[2024-11-16] MEDS: Insulin Lispro 100 UNIT/ML 10 ML VIAL SC PRN (16:57)
[2024-11-17 05:03] LABS: Hematocrit 37.2 % (34.9-44.5); Hemoglobin 12.2 g/dL (12.0-15.5); Mean Corpuscular HGB CONC 32.8 g/dL (32.0-36.0); Mean Corpuscular Hemoglobin 31.9 pg (27.0-33.0); Mean Corpuscular Volume 97.1 fL (81.6-98.3); Mean Platelet Volume 10.6 fL (7.4-10.4); Platelet Count 468 10x3/uL (150-450); RBC Distribution Width 18.7 % (11.5-14.5); Red Blood Cell (RBC) Count 3.83 10x6/uL (3.90-5.03); White Blood Cell (WBC) Count 6.75 10x3/uL (3.5-10.5)
[2024-11-17 05:06] LABS: Anion Gap 13 mmol/L (10-20); BUN (Urea Nitrogen) 10 mg/dL (9.8-20.1); Calc. Creatinine Clearance 195 mL/min (70-130); Calcium 7.6 mg/dL (7.8-10.44); Carbon Dioxide 31 mmol/L (23-31); Chloride 97 mmol/L (98-107); Estimated GFR 100; Glucose 381 mg/dL (80-115); Sodium 138 mmol/L (136-145)
[2024-11-17 05:41] LABS: Anisocytosis SLIGHT = 6-15 cells (100X) (0-5/hpf); Band 22 % (5-11); Basophilic Stippling SLIGHT = 1-2 cells (100X) (None Seen); Burr Cells SLIGHT = 2-5 cells (100X) (0-1/hpf); Large Platelets SLIGHT (None Seen); Lymphocytes 6 % (21-51); MDiff Complete? YES; Monocytes 12 % (0-10); Neutrophil 60 % (42-75); Nucleated RBC (Manual Ct) 3 % (0); Ovalocytes SLIGHT = 2-5 cells (100X) (0-1/hpf); Platelet Adequacy Comment Appears Increased; Polychromasia SLIGHT = 2-3 cells (100X) (0-2/hpf)
[2024-11-17 05:42] LABS: Reflex for Review?? YES
[2024-11-17] MEDS: Potassium Chloride 20 MEQ TAB PO SCH (09:00)
[2024-11-17] MEDS: Insulin Lispro 100 UNIT/ML 10 ML VIAL SC SCH ×4 (11:57→17:15)
[2024-11-17] MEDS ORDERED: Insulin Lispro 100 UNIT/ML 10 ML VIAL SC SCH (17:15)
[2024-11-17 18:19] VITALS: BP 139/73; TEMP 97.9
[2024-11-18] MEDS ORDERED: Glimepiride 4 MG TAB PO SCH (07:30)
== END 2024-11-17 18:25 | disposition swing bed (61) | DRG 640 ==
LOC: CSHERS 19:39 → CSHTELE 23:18 → OBSVTOIN 11-08 10:26
PROVIDERS: ADMIT Internal Medicine; ATTEND Family Medicine
DX: E87.6 Hypokalemia (principal); J96.01 Acute respiratory failure with hypoxia; N17.9 Acute kidney failure, unspecified; A08.4 Viral intestinal infection, unspecified; E87.8 Other disorders of electrolyte and fluid balance, not elsewhere classified; E03.9 Hypothyroidism, unspecified; E78.5 Hyperlipidemia, unspecified; E11.9 Type 2 diabetes mellitus without complications; I10 Essential (primary) hypertension; I48.91 Unspecified atrial fibrillation; E83.42 Hypomagnesemia; E66.01 Morbid (severe) obesity due to excess calories; E83.51 Hypocalcemia; K52.9 Noninfective gastroenteritis and colitis, unspecified; J10.1 Influenza due to other identified influenza virus with other respiratory manifestations; R74.01 Elevation of levels of liver transaminase levels; R00.1 Bradycardia, unspecified; I48.0 Paroxysmal atrial fibrillation; Z91.040 Latex allergy status; Z88.2 Allergy status to sulfonamides; Z90.49 Acquired absence of other specified parts of digestive tract; Z90.89 Acquired absence of other organs; Z92.21 Personal history of antineoplastic chemotherapy; Z79.01 Long term (current) use of anticoagulants; Z68.39 Body mass index [BMI] 39.0-39.9, adult
CPT/HCPCS: 0241U; 36415; 36416; 71045; 74177; 80048; 80053; 81001; 82310; 83605; 83630; 83690; 83735; 83880; 84100; 84145; 84484; 85025; 85060; 86140; 87324; 87449; 87505; 87507; 93005; 93010; 93970; 94667; 94668; 94760; 94762; 96365; 96366; 96375; 96376; G0378; J0612; J0613; J1815; J2405; J2919; J3475; J3480; J7611; J7620; J7626; Q0162; Q9967